=== PATIENT | male | born 1990 | race Caucasian/White ===

== ENCOUNTER 2017-09-30 18:49 | Inpatient (IN) | payer SELFPAY ==
[~2017-09-30] VITALS: Ht 190.5 cm; Wt 108.4 kg
[2017-09-30] VITALS (12 sets, daily range): BP systolic 113–138; BP diastolic 66–91
[2017-09-30] MEDS ORDERED: Ketorolac 30mg Inj IV ONE (19:00)
[2017-09-30] MEDS ORDERED: Morphine Sulfate 4mg/ml Inj IVP ONE ×2 (19:00→22:30)
[2017-09-30 19:40] LABS: MEAN CORPUSCULAR VOLUME 92 FL (80-99); PLATELET COUNT 211 K/UL (150-450); RED BLOOD COUNT 5.42 M/UL (4.70-6.10); RED CELL DISTRIBUTION WIDTH 10.6 % (11.6-14.8); WHITE BLOOD COUNT 11.2 K/UL (4.8-10.8)
[2017-09-30] MEDS ORDERED: Sodium Chloride 500ML 500 ML IV ONE ×2 (20:00→22:00)
[2017-09-30 20:08] LABS: HEMOGLOBIN 18.1 G/DL (14.2-18.0); LYMPHOCYTES % (AUTO) 10.4 % (20.0-45.0); MONOCYTES % (AUTO) 3.7 % (1.0-10.0)
[2017-09-30 20:09] LABS: BASOPHILS % (AUTO) 0.6 % (0.0-2.0); EOSINOPHILS % (AUTO) 0.3 % (0.0-3.0)
[2017-09-30 20:12] LABS: ANION GAP 9 mmol/L (5-15); BLOOD UREA NITROGEN 20 mg/dL (7-18); CALCIUM 9.6 MG/DL (8.5-10.1); CARBON DIOXIDE 27 MMOL/L (21-32); CHLORIDE 105 MMOL/L (98-107); CREATININE 1.9 MG/DL (0.55-1.30); POTASSIUM 4.3 MMOL/L (3.5-5.1); SODIUM 141 MMOL/L (136-145)
[2017-09-30 20:17] LABS: ALANINE AMINOTRANSFERASE 44 U/L (12-78); ALBUMIN 4.3 G/DL (3.4-5.0); ALBUMIN/GLOBULIN RATIO 1.2 (1.0-2.7); ALKALINE PHOSPHATASE 65 U/L (46-116); ASPARTATE AMINO TRANSFERASE 22 U/L (15-37); BILIRUBIN,TOTAL 0.5 MG/DL (0.2-1.0)
--- NOTE | 2017-09-30 20:56 | Emergency Room Report ---
History of Present Illness General Chief Complaint: Lower Extremity Injury Source: Patient Present Illness HPI 27-year-old male presents ED for evaluation. Patient brought in by EMS with deformity to right leg. Patient was playing basketball and was hit during layup and slammed into a wall. Pain is 10 out of 10, throbbing, nonradiating. Denies any other injuries. Was given morphine 2 by EMS. No other aggravating relieving factors. Denies any other associated symptoms Allergies: Coded Allergies: FENTANYL (Verified Allergy, Unknown, 09/30/17) Patient History Past Medical History: none Past Surgical History: none Pertinent Family History: none Social History: Denies: smoking, alcohol use, drug use Immunizations: UTD Reviewed Nursing Documentation: PMH: Agreed; PSxH: Agreed Nursing Documentation-PMH Past Medical History: No Stated History Review of Systems All Other Systems: negative except mentioned in HPI Physical Exam Vital Signs Date Time Temp Pulse Resp B/P (MAP) Pulse Ox O2 Delivery O2 Flow Rate FiO2 09/30/17 18:47 97.8 80 20 135/88 100 Room Air 97.9 Sp02 EP Interpretation: reviewed, normal General Appearance: no apparent distress, alert, GCS 15, non-toxic Head: normocephalic, atraumatic Eyes: bilateral eye normal inspection, bilateral eye PERRL ENT: hearing grossly normal, normal pharynx, no angioedema, normal voice Neck: full range of motion, supple/symm/no masses Respiratory: chest non-tender, lungs clear, normal breath sounds, speaking full sentences Cardiovascular #1: regular rate, rhythm, no edema Cardiovascular #2: 2+ carotid (R), 2+ carotid (L), 2+ radial (R), 2+ radial (L) , 2+ dorsalis pedis (R), 2+ dorsalis pedis (L) Gastrointestinal: normal bowel sounds, non tender, soft, non-distended, no guarding, no rebound Rectal: deferred Genitourinary: normal inspection, no CVA tenderness Musculoskeletal: back normal, gait/station normal, normal range of motion, tender - RLE deformity. pulses intact Neurologic: alert, oriented x3, responsive, motor strength/tone normal, sensory intact, speech normal Psychiatric: judgement/insight normal, memory normal, mood/affect normal, no suicidal/homicidal ideation Reflexes: 3+ bicep (R), 3+ bicep (L), 3+ tricep (R), 3+ tricep (L), 3+ knee (R) , 3+ knee (L) Skin: normal color, no rash, warm/dry, well hydrated Lymphatic: no adenopathy Procedures Joint Reduction Joint Reduction : Consent: Written Joint Reduction Site: other - RLE Procedural Sedation: Yes Reduction Attempts: One Pre-Procedure NV Exam: Yes Post-Procedure NV Exam: Yes Post Joint Reduction Film: joint not reduced Patient Tolerated: Well Complications: None Procedural Sedation Consent: Written Pre-Sedation Assessment: Eval. Immed. Prior to Sed, Pre-proc Edu. done, Plan for Sedation Discuss Airway Assessment (Malampati): I Heart: normal Lungs: normal Abdomen: normal Extremities: normal Procedures/Plans: Closed Reduction Plan for Moderate Sedation: Propofol ASA Score: I Procedure Narrative patient given total 400mg propofol Start Time: 22:05 End Time: 22:40 Communication: No Apparent Limitation Mental Status: Awake Respiration: Unlabored Skin Condition: WNL Abdomen: WNL Nausea: NO Vomiting: NO Medical Decision Making Diagnostic Impression: Primary Impression: Tibia/fibula fracture Qualified Codes: S82.201A - Unspecified fracture of shaft of right tibia, initial encounter for closed fracture; S82.401A - Unspecified fracture of shaft of right fibula, initial encounter for closed fracture ER Course Hospital Course 27-year-old male presents ED with deformity to right lower extremity status post fall Differential diagnoses include: fracture, dislocation, contusion Clinical course Patient placed on stretcher. After initial history and physical I ordered labs , pain medication and x-rays of RLE X-ray show comminuted fractures of tibia and fibula with angulation. Not open however there is tenting of the skin Using procedural sedation we attempted to reduce the fracture however once aligned fracture does pop out again Splinting with posterior splint and stirrup Overall improved alignment however unstable and patient cannot bear weight. Case discussed with Dr. Ho Guajardo who agreed to consult on this case. Case discussed with Dr. Ritchie who agreed to accept the patient to his service for further care and support i. I feel this is a highly complex case requiring extensive working including EKG/Rhythm strip, Xray/CT/US, Blood/urine lab work, repeat exams while in ED, and administration of strong opiates/narcotics for pain control, admission to hospital or close patient follow up. Diagnosis - tiba/fibula fx Admitted to floor in serious condition Labs Test 09/30/17 19:20 White Blood Count 11.2 K/UL (4.8-10.8) Red Blood Count 5.42 M/UL (4.70-6.10) Hemoglobin 18.1 G/DL (14.2-18.0) Hematocrit 50.0 % (42.0-52.0) Mean Corpuscular Volume 92 FL (80-99) Mean Corpuscular Hemoglobin 33.4 PG (27.0-31.0) Mean Corpuscular Hemoglobin Concent 36.3 G/DL (32.0-36.0) Red Cell Distribution Width 10.6 % (11.6-14.8) Platelet Count 211 K/UL (150-450) Mean Platelet Volume 8.3 FL (6.5-10.1) Neutrophils (%) (Auto) 85.0 % (45.0-75.0) Lymphocytes (%) (Auto) 10.4 % (20.0-45.0) Monocytes (%) (Auto) 3.7 % (1.0-10.0) Eosinophils (%) (Auto) 0.3 % (0.0-3.0) Basophils (%) (Auto) 0.6 % (0.0-2.0) Prothrombin Time 10.5 SEC (9.30-11.50) Prothromb Time International Ratio 1.0 (0.9-1.1) Activated Partial Thromboplast Time 22 SEC (23-33) Sodium Level 141 MMOL/L (136-145) Potassium Level 4.3 MMOL/L (3.5-5.1) Chloride Level 105 MMOL/L (98-107) Carbon Dioxide Level 27 MMOL/L (21-32) Anion Gap 9 mmol/L (5-15) Blood Urea Nitrogen 20 mg/dL (7-18) Creatinine 1.9 MG/DL (0.55-1.30) Estimat Glomerular Filtration Rate 42.7 mL/min (>60) Glucose Level 100 MG/DL (74-106) Calcium Level 9.6 MG/DL (8.5-10.1) Total Bilirubin 0.5 MG/DL (0.2-1.0) Aspartate Amino Transf (AST/SGOT) 22 U/L (15-37) Alanine Aminotransferase (ALT/SGPT) 44 U/L (12-78) Alkaline Phosphatase 65 U/L (46-116) Total Protein 7.9 G/DL (6.4-8.2) Albumin 4.3 G/DL (3.4-5.0) Globulin 3.6 g/dL Albumin/Globulin Ratio 1.2 (1.0-2.7) Other X-Ray Diagnostic Results Other X-Ray Diagnostic Results #1: X-Ray ordered: R tibfib # of Views/Limited Vs Complete: 2 View Indication: Pain EP Interpretation: Yes Interpretation: no dislocation, other - tibia and fibula fx. comminuted. displaced with angulation Impression: Other - fx Electronically Signed by: Electronically signed by Phu Car MD Other X-Ray Diagnostic Results #2: X-Ray ordered: R ankle # of Views/Limited Vs Complete: 3 View Indication: Pain EP Interpretation: Yes Interpretation: no dislocation, other - tibia/fibula comminuted fx with angulation Impression: Other - fx Electronically Signed by: Electronically signed by Phu Car MD Last Vital Signs Date Time Temp Pulse Resp B/P (MAP) Pulse Ox O2 Delivery O2 Flow Rate FiO2 09/30/17 20:32 97.5 62 16 125/66 100 Room Air 97.5 Status: improved Disposition: ADMITTED INPATIENT Condition: Serious Phu Car MD September 30, 2017 20:56
[2017-09-30] MEDS ORDERED: Propofol 200mg/20ml IV ONE ×3 (22:03→23:30)
[2017-09-30] MEDS ORDERED: Morphine Sulfate 4mg/ml Inj ONE (22:28)
[2017-09-30] MEDS ORDERED: NKM (23:15)
[2017-10-01] VITALS (10 sets, daily range): BP systolic 107–161; BP diastolic 7–83
[2017-10-01] MEDS ORDERED: Morphine Sulfate 10mg/ml Inj IVP PRN (00:30)
[2017-10-01] MEDS ORDERED: Morphine Sulfate 4mg/ml Inj IVP PRN ×4 (00:30→07:00)
[2017-10-01] MEDS ORDERED: Morphine Sulfate 4mg/ml Inj IV PRN (02:00)
[2017-10-01] MEDS: D5 1/2NS 1,000 ML IV SCH ×2 (03:45→16:40)
[2017-10-01] MEDS ORDERED: Mylanta II UD 30ml ORAL PRN (07:00)
[2017-10-01] MEDS ORDERED: LORazepam Inj 2mg/ml 1ml IV PRN (07:00)
[2017-10-01] MEDS: Heparin 5000 units/ml inj SUBQ SCH ×2 (08:14→21:00)
[2017-10-01] MEDS: Morphine Sulfate 4mg/ml Inj IVP PRN ×2 (08:30→15:14)
--- NOTE | 2017-10-01 09:04 | Consultation ---
History of Present Illness General Date patient seen: October 01, 2017 Chief Complaint: Lower Extremity Injury Present Illness Allergies: Coded Allergies: FENTANYL (Verified Allergy, Unknown, 09/30/17) Medication History Scheduled No Known Medications* (NKM - No Known Medications*), 0 ., (Reported) Patient History Healthcare decision maker Resuscitation status Full Code Advanced Directive on File Physical Exam Last 24 Hour Vital Signs Date Time Temp Pulse Resp B/P (MAP) Pulse Ox O2 Delivery O2 Flow Rate FiO2 10/01/17 08:54 97.3 84 20 107/61 98 Room Air 97.3 10/01/17 04:00 97.3 68 20 132/79 98 97.3 10/01/17 00:40 97.5 77 18 130/80 98 Room Air 97.5 10/01/17 00:30 97.5 77 18 130/80 98 Room Air 97.5 10/01/17 00:25 97.2 09/30/17 23:40 97.2 67 13 99 Nasal Cannula 4.0 97.2 65 97 82 95 74 96 82 09/30/17 23:25 74 14 126/82 95 Room Air 09/30/17 23:22 18 09/30/17 23:22 97.5 09/30/17 23:10 82 17 137/72 97 Room Air 09/30/17 22:55 67 13 114/73 99 Nasal Cannula 4.0 09/30/17 22:53 97.5 09/30/17 22:35 97.4 72 22 130/76 99 Nasal Cannula 4.0 97.4 09/30/17 22:30 97.4 71 15 129/69 99 Nasal Cannula 4.0 97.4 09/30/17 22:25 97.4 70 17 127/71 99 Nasal Cannula 4.0 97.4 09/30/17 22:20 97.4 73 12 129/69 100 Nasal Cannula 4.0 97.4 09/30/17 22:15 97.3 78 18 138/75 100 Nasal Cannula 4.0 97.3 09/30/17 22:10 97.3 88 24 127/69 100 Nasal Cannula 4.0 97.3 09/30/17 22:00 97.3 65 13 113/91 100 Nasal Cannula 4.0 97.3 09/30/17 20:32 97.5 62 16 125/66 100 Room Air 97.5 09/30/17 19:44 97.8 09/30/17 19:44 97.8 09/30/17 19:14 97.8 09/30/17 19:14 97.8 09/30/17 18:47 97.8 80 20 135/88 100 Room Air 97.9 Intake and Output 09/30/17 10/01/17 18:59 06:59 Intake Total 1425 ml Output Total 300 ml Balance 1125 ml Intake Oral 200 ml IV Total 1225 ml Output Urine Total 300 ml Laboratory Tests Test 09/30/17 19:20 White Blood Count 11.2 K/UL (4.8-10.8) H Red Blood Count 5.42 M/UL (4.70-6.10) Hemoglobin 18.1 G/DL (14.2-18.0) *H Hematocrit 50.0 % (42.0-52.0) Mean Corpuscular Volume 92 FL (80-99) Mean Corpuscular Hemoglobin 33.4 PG (27.0-31.0) H Mean Corpuscular Hemoglobin Concent 36.3 G/DL (32.0-36.0) H Red Cell Distribution Width 10.6 % (11.6-14.8) L Platelet Count 211 K/UL (150-450) Mean Platelet Volume 8.3 FL (6.5-10.1) Neutrophils (%) (Auto) 85.0 % (45.0-75.0) H Lymphocytes (%) (Auto) 10.4 % (20.0-45.0) L Monocytes (%) (Auto) 3.7 % (1.0-10.0) Eosinophils (%) (Auto) 0.3 % (0.0-3.0) Basophils (%) (Auto) 0.6 % (0.0-2.0) Prothrombin Time 10.5 SEC (9.30-11.50) Prothromb Time International Ratio 1.0 (0.9-1.1) Activated Partial Thromboplast Time 22 SEC (23-33) L Sodium Level 141 MMOL/L (136-145) Potassium Level 4.3 MMOL/L (3.5-5.1) Chloride Level 105 MMOL/L (98-107) Carbon Dioxide Level 27 MMOL/L (21-32) Anion Gap 9 mmol/L (5-15) Blood Urea Nitrogen 20 mg/dL (7-18) H Creatinine 1.9 MG/DL (0.55-1.30) H Estimat Glomerular Filtration Rate 42.7 mL/min (>60) Glucose Level 100 MG/DL (74-106) Calcium Level 9.6 MG/DL (8.5-10.1) Total Bilirubin 0.5 MG/DL (0.2-1.0) Aspartate Amino Transf (AST/SGOT) 22 U/L (15-37) Alanine Aminotransferase (ALT/SGPT) 44 U/L (12-78) Alkaline Phosphatase 65 U/L (46-116) Total Protein 7.9 G/DL (6.4-8.2) Albumin 4.3 G/DL (3.4-5.0) Globulin 3.6 g/dL Albumin/Globulin Ratio 1.2 (1.0-2.7) Height (Feet): 6 Height (Inches): 3.00 Weight (Pounds): 240 Medications Current Medications Medications (Trade) Dose Ordered Sig/Jeremie Route PRN Reason Start Time Stop Time Status Last Admin Dose Admin Acetaminophen (Tylenol) 650 mg Q4H PRN ORAL T>100.5 10/01/17 07:00 10/31/17 06:59 Al Hydroxide/Mg Hydroxide (Mylanta II) 30 ml Q6H PRN ORAL dyspepsia 10/01/17 07:00 10/31/17 06:59 Dextrose (Dextrose 50%) 25 ml PRN IV Hypoglycemia 10/01/17 07:15 10/31/17 07:14 Dextrose (Dextrose 50%) 50 ml PRN IV hypoglycemia 10/01/17 07:15 10/31/17 07:14 Dextrose/Sodium Chloride 1,000 ml @ 75 mls/hr [id number] IV 10/01/17 03:00 10/31/17 02:59 10/01/17 03:45 Heparin Sodium (Porcine) (Heparin 5000 units/ml) 5,000 units EVERY 12 HOURS SUBQ 10/01/17 09:00 10/31/17 08:59 Lorazepam (Ativan 2mg/ml 1ml) 0.5 mg Q4H PRN IV For Anxiety 10/01/17 07:00 10/08/17 06:59 Morphine Sulfate (Morphine Sulfate) 2 mg Q4H PRN IVP Mild Pain (Pain Scale 1-3) 10/01/17 02:15 10/08/17 02:14 Morphine Sulfate (Morphine Sulfate) 4 mg Q4H PRN IVP Moderate Pain (Pain Scale 4-6) 10/01/17 02:15 10/08/17 02:14 10/01/17 08:30 Morphine Sulfate (Morphine Sulfate) 6 mg Q4H PRN IVP Severe Pain (Pain Scale 7-10) 10/01/17 06:00 10/08/17 01:59 Ondansetron HCl (Zofran) 4 mg Q6H PRN IVP Nausea & Vomiting 10/01/17 02:00 10/31/17 01:59 10/01/17 08:41 Polyethylene Glycol (Miralax) 17 gm HSPRN PRN ORAL Constipation 10/01/17 21:00 10/31/17 20:59 Zolpidem Tartrate (Ambien) 5 mg HSPRN PRN ORAL Insomnia 10/01/17 21:00 10/08/17 20:59 Assessment/Plan Assessment/Plan (1) Right LE pain (2) Tibia/fibula fracture Seen dictated VELMA DEVRIES October 01, 2017 09:04
[2017-10-01] MEDS ORDERED: DiphenhydrAMINE 50mg/ml Inj ONE (13:12)
--- NOTE | 2017-10-01 13:23 | Diagnostic Imaging Report ---
Indication: Pain status post injury Technique: XRAY Leg Lower Tib Fib 2v R Comparison: None Findings: Acute, comminuted and significantly displaced and related fractures of the distal fibular. The fibular shaft is fractured in 2 areas. Fracture of the distal tibial shaft is noted with significant displacement and angulation and mild comminution. There is overlying soft tissue swelling. The partially imaged knee and ankle joints are grossly preserved. No radiopaque foreign body is seen. Impression: Acute distal tibial and fibular fractures as above.
--- NOTE | 2017-10-01 13:25 | Diagnostic Imaging Report ---
Indication: Pain status post injury Technique: XRAY Ankle Compl Min 3v R Comparison: None Findings: 2, displaced and angulated and mildly comminuted fractures of the tibial and fibular shafts. The ankle mortise is intact on these nonstress views. There is a small os perineum. No radiopaque foreign body is seen. Impression: Acute fractures of the distal fibular and tibial shafts. Ankle mortise intact. No definite/displaced ankle fracture is identified on these limited portable views.
--- NOTE | 2017-10-01 13:28 | Diagnostic Imaging Report ---
Indication: Fracture Technique: XRAY Ankle 2v R Comparison: Earlier the same day. Findings: There is slight improved alignment of the tibial and fibular shaft fractures status post reduction. Significant displacement persists. No definite new fracture identified. IMPRESSION: Significant persistent displacement of acute tibial/fibular fractures status post external reduction and splinting.
--- NOTE | 2017-10-01 15:44 | History & Physical ---
History and Physical History & Physicial job # [id number] Fabricio Ritchie MD October 01, 2017 15:44
--- NOTE | 2017-10-01 16:45 | Consultation ---
DATE OF CONSULTATION: 10/01/2017 PAIN MANAGEMENT CONSULTATION CONSULTING PHYSICIAN: Rachel Rucker M.D. REFERRING PHYSICIAN: David Parker M.D. PHYSICIAN MENTAL HEALTH CONSULTANT: Paulino Chowdhury CHIEF COMPLAINT: Right lower extremity pain. HISTORY OF PRESENT ILLNESS: This is a 27-year-old male, who is being seen on the Med/Surg floor of [facility] for initial comprehensive pain management consultation. The patient is reporting that he has been having right lower extremity pain and deformity. He reports that he had been playing basketball, was hit during a basket ball game into the wall. Pain has been a 10/10, reduced to 5/10 at this time, throbbing sharp pain with movement. A cast has been applied. Waiting to be seen by orthopedic surgeon for further evaluation, possible surgery. At this time, he is on morphine 2, 4 and 6 mg for mild, moderate, and severe pain. The patient is on taking the morphine 4 mg IV, which has reduced the pain to the current level at this time. He has no new complaints. PAST MEDICAL HISTORY: Denies. PAST SURGICAL HISTORY: Abdominal surgery for bladder issues. SOCIAL HISTORY: He is a drinker of alcohol. Denies IV drug abuse and smoking tobacco. ALLERGIES: Fentanyl. MEDICATIONS: Does not take any medication as an outpatient. REVIEW OF SYSTEMS: Denies rash, fever, chills, sweating, dizziness, drowsiness, or change in weight. No shortness of breath or chest pain. No nausea, vomiting, or blood in stool or urine. No bowel or bladder incontinence. No dysuria. He is complaining of right lower extremity pain. PHYSICAL EXAMINATION: GENERAL: Alert, awake, and oriented x3. VITAL SIGNS: Blood pressure 147/61, heart rate is 84, oxygen saturation 98%, respiratory rate 20, and temperature is 97.3 degrees Fahrenheit. HEENT: PERRLA. NECK: Range of motion is full in all directions. No tenderness to paracervical muscles. No adenopathy. LUNGS: Clear. HEART: Regular. ABDOMEN: Benign. BACK: Range of motion is full on flexion and extension. EXTREMITIES: Upper extremity range of motion is full in all directions. Motor is intact. No cyanosis. No clubbing. No edema. Sensory is intact. Reflexes are unobtainable. No adenopathy. Lower extremity range of motion is decreased with cast noted on the right lower extremity. Tenderness to palpation and sensory is intact. Reflexes are unobtainable. No adenopathy. ASSESSMENT AND PLAN: This is a 27-year-old male with right lower extremity pain due to tibia-fibula fracture. The patient will be continued on morphine as needed for pain. Waiting for evaluation by orthopedic surgeon. The patient was discussed with Dr. Rucker and Dr. Rucker concurred. We will follow the patient. Thank you very much for the courtesy of this consultation. Rachel Rucker M.D. PHYLLIS Chowdhury DR: LEYDA JOB#: [id number] CC: RUMA
[2017-10-01] MEDS ORDERED: EPINEPHrine 1mg/1ml Amp ONE (19:02)
[2017-10-01] MEDS ORDERED: Bupivacaine 0.25% Inj 30ml INJ ONE (19:03)
[2017-10-01] MEDS ORDERED: Bacitracin 50000 Units Vial ONE (19:03)
[2017-10-01] MEDS ORDERED: Lidocaine 1% 10mg/ml/Epi 0.005mg/ml 30ml vial INJ ONE (19:03)
[2017-10-01] MEDS ORDERED: NeoSporin Gu Irrig 1ml Amp IRRIG ONE (19:03)
[2017-10-01] MEDS ORDERED: NS Irrig 1000ml ONE (19:30)
[2017-10-01] MEDS ORDERED: Sterile Water Irrig 1000ml IRRIG ONE (19:30)
[2017-10-01] MEDS ORDERED: LR 1000ml ONE (19:30)
[2017-10-01] MEDS ORDERED: Morphine Sulfate 10mg/ml Inj ONE (19:44)
[2017-10-01] MEDS ORDERED: D5 1/2NS 1,000 ML IV SCH (19:45)
--- NOTE | 2017-10-01 19:46 | Pre-Procedure Note/Attestation ---
Pre-Procedure Note/Attestation Complete Prior to Procedure Planned Procedure: right Procedure Narrative: tibia orif Indications for Procedure Pre-Operative Diagnosis: right tibia and fibula fracture Attestation I attest that I discussed the nature of the procedure; its benefits; risks and complications; and alternatives (and the risks and benefits of such alternatives ), prior to the procedure, with the patient (or the patient's legal senior account representative). I attest that, if there was a reasonable possibility of needing a blood transfusion, the patient (or the patient's legal senior account representative) was given the [facility] standardized written summary, pursuant to the Judah Felicity Blood Safety Act ([place] Health and Safety Code # 1645, as amended). I attest that I re-evaluated the patient just prior to the surgery and that there has been no change in the patient's H&P, except as documented below: KAM SOTELO October 01, 2017 19:46
--- NOTE | 2017-10-01 19:46 | Operative Note - PDOC ---
Operative Note Operative Note Pre-op Diagnosis: right tibia and fibula fracture Procedure: see op report Post-op Diagnosis: same as pre-op plus Operative Findings: consistent w/pre-op dx studies Anesthesia: MAC Specimen: none Complications: none Condition: stable Estimated Blood Loss: none Implant(s) used?: Yes KAM SOTELO October 01, 2017 19:46
[2017-10-01] MEDS ORDERED: Metoclopramide 10mg/2ml Inj ONE (20:04)
[2017-10-01] MEDS ORDERED: Glycopyrrolate 0.2mg/ml 1ml Vial ONE ×2 (20:04→21:13)
[2017-10-01] MEDS ORDERED: Propofol 200mg/20ml IV ONE (20:04)
[2017-10-01] MEDS ORDERED: Dexamethasone 4mg/ml vial ONE (20:04)
[2017-10-01] MEDS ORDERED: Ketorolac 30mg Inj ONE (20:04)
[2017-10-01] MEDS ORDERED: fentaNYL 100 mcg/2 mL IV ONE (20:04)
[2017-10-01] MEDS ORDERED: LR 1000ml 1,000 ML IVLG SCH (20:14)
[2017-10-01] MEDS ORDERED: Metoclopramide 10mg/2ml Inj IVP PRN (20:15)
[2017-10-01] MEDS ORDERED: Midazolam 2mg/2ml Inj IVP PRN (20:15)
[2017-10-01] MEDS ORDERED: Morphine Sulfate 4mg/ml Inj IM PRN (20:15)
[2017-10-01] MEDS ORDERED: DiphenhydrAMINE 50mg/ml Inj IVP PRN (20:15)
--- NOTE | 2017-10-01 20:21 | Anethesia Preoperative Eval ---
Anesthesia Pre-op PMH/ROS General Date of Evaluation: October 01, 2017 Time of Evaluation: 19:30 Anesthesiologist: Yvette ASA Score: ASA 2 Mallampati Score Class I : Soft palate, uvula, fauces, pillars visible Class II: Soft palate, uvula, fauces visible Class III: Soft palate, base of uvula visible Class IV: Only hard plate visible Mallampati Classification: Class II Surgeon: Bennett Diagnosis: Right tibfib fracturer Surgical Procedure: )RIF right tibia fibula Anesthesia History: none Family History: no anesthesia problems Allergies: Coded Allergies: FENTANYL (Verified Allergy, Unknown, 09/30/17) Medications: see eMAR Anesthesia Pre-op Phys. Exam Physician Exam Last Vital Signs Date Time Temp Pulse Resp B/P (MAP) Pulse Ox O2 Delivery O2 Flow Rate FiO2 10/01/17 16:07 99.3 74 22 127/77 99 Room Air 99.3 09/30/17 23:40 4.0 Constitutional: NAD Neurologic: CN 2-12 intact Cardiovascular: RRR Respiratory: CTA Gastrointestinal: S/NT/ND Airway Exam Mallampati Score: Class II MO: full ROM: full Teeth: intact Anesthesia Pre-op A/P Risk Assessment & Plan Plan: GA Status Change Before Surgery: No Pre-Antibiotics Drug: Ancef Given Within 1 Hr of Incision: Yes Roman Crawford M.D. October 01, 2017 20:21
--- NOTE | 2017-10-01 20:23 | Immediate Post-Op Evaluation ---
Immediate Post-Op Evalulation Immediate Post-Op Evalulation Procedure: ORIF Right tib fib Date of Evaluation: October 01, 2017 Time of Evaluation: 22:00 IV Fluids: 1000 Blood Products: 0 Estimated Blood Loss: 20 Urinary Output: 0 Blood Pressure Systolic: 121 Blood Pressure Diastolic: 69 Pulse Rate: 80 Respiratory Rate: 19 O2 Sat by Pulse Oximetry: 99 Temperature (Fahrenheit): 98 Pain Score (1-10): 0 Nausea: No Vomiting: No Patient Status: awake, reacts, patent, extubated Hydration Status: adequate Drug: ancef Given Within 1 Hr of Incision: Yes Time Given: 20:00 Roman Crawford M.D. October 01, 2017 20:23
--- NOTE | 2017-10-01 20:24 | 48 Hour Post Anesthesia Eval ---
Post Anesthesia Evaluation Procedure: ORIF Right tib fib Date of Evaluation: October 03, 2017 Time of Evaluation: 20:23 Blood Pressure Systolic: 130 0: 72 Pulse Rate: 98 Respiratory Rate: 16 Temperature (Fahrenheit): 98 O2 Sat by Pulse Oximetry: 99 Airway: patent Nausea: No Vomiting: No Pain Intensity: 0 Hydration Status: adequate Mental Status/LOC: patient returned to baseline Post-Anesthesia Complications: none Follow-up care needed: ready to discharge Roman Crawford M.D. October 01, 2017 20:24
[2017-10-01] MEDS ORDERED: Meperidine 50mg/ml Inj(FOR RIGORS ONLY) ONE (20:26)
[2017-10-01] MEDS ORDERED: Acetaminophen (Non formulary) 100 ML IV ONE (20:30)
[2017-10-01] MEDS ORDERED: Miralax 17gm pkt ORAL PRN (21:00)
[2017-10-01] MEDS ORDERED: Zolpidem 5mg tab ORAL PRN (21:00)
[2017-10-01] MEDS ORDERED: Neostigmine 1mg/ml 10ml Inj ONE (21:02)
[2017-10-01] MEDS ORDERED: Ropivacaine 5mg/ml Vial 30ml INJ ONE (21:20)
[2017-10-01] MEDS ORDERED: Zemuron 50mg/5ml Inj IV ONE (21:58)
[2017-10-01] MEDS ORDERED: Vancomycin 1gm inj IVPB ONE (22:19)
[2017-10-02] VITALS: BP 151/89
[2017-10-02] MEDS: Morphine Sulfate 4mg/ml Inj IVP PRN ×2 (00:40→10:05)
--- NOTE | 2017-10-02 00:45 | History and Physical Report ---
DATE OF ADMISSION: 09/30/2017 CHIEF COMPLAINT: Right foot injury. HISTORY OF PRESENT ILLNESS: The patient is a 27-year-old gentleman. He denies any past medical history. Past surgical history, he had bladder surgery at age of 5 for unknown reason who presented to the emergency room after sustained injury while playing basketball. The patient was trying to doing his slam jumping up to throw the ball. He was thrown to the side and subsequently felt to have sharp pain to the right lower extremity, 10/10 in intensity, throbbing, nonradiating and subsequently the patient was brought into the emergency room. After initial evaluation in the emergency, the patient was noted to have tibia-fibula fracture and subsequently the patient was admitted to the hospital for surgical intervention. Dr. Guajardo was consulted from Orthopedics and the patient was admitted to the hospital for further evaluation and possible surgical intervention today. PAST MEDICAL HISTORY AND PAST SURGICAL HISTORY: History of bladder surgery at age of 5. MEDICATIONS: At home, none. ALLERGIES: To fentanyl with unknown allergy reaction. SOCIAL HISTORY: The patient denies any smoking. Socially drinking. No substance. FAMILY HISTORY: Noncontributory. REVIEW OF SYSTEMS: Mostly as above. Denies any dysuria, frequency, hematuria, or hematochezia. Denies any hemoptysis or hematochezia. Denies any suicidal or homicidal ideation. PHYSICAL EXAMINATION: GENERAL: The patient is awake, responsive, in no acute distress. VITAL SIGNS: On admission from the ER, temperature 97.8 degrees, pulse of 80, respirations 20, and blood pressure 135/88. HEAD AND NECK: Pupils are reactive to light. Extraocular movements are intact. Neck was supple. No JVD. LUNGS: Good air entry. No wheezing or rales HEART: S1 and S2. Regular rhythm. No gallops. ABDOMEN: Soft, nondistended, and nontender. No rebound tenderness. No fluid shift. EXTREMITIES: No cyanosis, clubbing, or edema. Right lower extremity has a splint. NEUROLOGIC: Cranial nerves II through XII grossly intact. Motor strength is 5/5 in all extremities. Gait was not assessed due to patient's status at this time. LABORATORY AND DIAGNOSTIC DATA: On admission significant for WBC of 11, hemoglobin 18, hematocrit 50, platelet 211. Sodium 141, potassium 4.2, chloride 105, bicarbonate 27, BUN 20, creatinine 1.9 and glucose is 100. AST of 23 and ALT of 44. PT of 10, INR 1.0 and PTT of 22. The patient has tibia-fibula x-ray showed acute distal tibial and fibular fracture. Ankle x-ray, acute fracture of the tibia-fibula shaft, ankle intact. No definitive displaced ankle fracture is identified and this is limited portable view. ASSESSMENT: 1. Status post fall injury to the right lower extremity with acute tibia-fibula right lower extremity fracture. 2. Acute kidney injury. 3. Dehydration. PLAN: Admit the patient to Medical/Surgical. We will follow up laboratory. IV hydration. NPO after midnight for surgical intervention by Dr. Guajardo. We will monitor laboratory closely. If the patient's status improved, consider discharge home tomorrow to be followed up with Dr. Guajardo as outpatient. Fabricio Ritchie M.D. DR: CHRIS JOB#: [id number] CC:
[2017-10-02 01:29] VITALS: BP 116/80
[2017-10-02 04:00] VITALS: BP 117/80
[2017-10-02] MEDS: ceFAZolin sod 2 GM in D5W 55 ML IV SCH ×2 (04:08→12:00)
--- NOTE | 2017-10-02 05:15 | Operative Note - Dictated ---
DATE OF OPERATION: 10/01/2017 PREOPERATIVE DIAGNOSIS: Right tibia and fibula fracture. POSTOPERATIVE DIAGNOSIS: Right tibia and fibula fracture. PROCEDURE: Open reduction and internal fixation of right tibia fracture. SURGEON: Ho Guajardo M.D. ANESTHESIA: General with femoral adductor block. INDICATION FOR PROCEDURE: The patient is a 27-year-old gentleman, who sustained injury to his right leg while playing basketball. He was diagnosed with tib-fib fracture indicative of operative fixation. Risks, limitations, expectations, and complications of the procedure were discussed in detail. All questions addressed. DESCRIPTION OF PROCEDURE: After informed consent was obtained, the patient was brought into the operating room and was placed supine under general anesthesia. Ancef was administered. Tourniquet was applied to the right proximal thigh. Right leg was prepped and draped in a sterile manner. Longitudinal incision at the distal third of the tibia was performed centered around the apex of the fracture. At this point, reduction of the fracture was performed. There was a butterfly fragment that was behind the posterior aspect. It was very difficult and challenging to get this fragment of bone mobilized anteriorly, however, after multiple attempts, we were able to mobilize the anterior distal soft tissue that was still attached and maintained to this butterfly fragment to ensure the vascularity of the fragments. At this point, a one-third tubular plate was then selected for provisional fixation reduction. Once this was done, attention turned towards intramedullary nailing procedure. A standard medial parapatellar arthrotomy was performed. The proximal aspect of the tibia was well visualized and guidewire was then placed into the proximal tibia. Once AP, lateral fluoroscopy images were obtained, the proximal tibia was opened up with opening reamer. A beaded tip guidewire was then placed and sequential reaming up to 12.5 was performed. A 10 x mm nail was selected and set down. Of note, the reaming and the nailing was difficult to bypass the provisional fixation. Therefore, the plate was held with clamps and the screws were removed, which did at least provide provisional reduction of the fracture allowing the reamers of the nail to pass through. Once that was done, the nail was then set down. At this point, two distal screws were then placed down. Once the distal fixation was performed, a slap hammer was placed in the proximal tibia and the fracture site was then compressed using the slap hammer. Once adequate compression along the fracture site was performed, two proximal screws were placed both in static and dynamic. At this point, the wound was copiously irrigated. Arthrotomy site was closed with #1 Vicryl suture. Vancomycin powder was placed into the open wounds. Subcutaneous was approximated with 2-0 Vicryl suture, 3-0 Monocryl sutures, and Dermabond dressing was applied. Distally some of the reamings were removed and was placed along the area of the comminution to help potentially heal the bone. The skin was similarly approximated with #1 Vicryl suture, 2-0 Vicryl suture, and 3-0 Monocryl sutures. A posterior splint was applied. The patient was awoken and taken to recovery room with stable vital signs. ESTIMATED BLOOD LOSS: 200 mL. COMPLICATIONS: None. SPECIMENS: None. IMPLANTS: A 10 x mm tibial nail and two distal and two proximal locking screws, a 5-hole one-third tubular plate was screws for provisional fixation. Ho Guajardo M.D. DR: PATTIE JOB#: [id number] CC:
[2017-10-02] MEDS: D5 1/2NS 1,000 ML IV SCH ×2 (05:40→06:49)
[2017-10-02 08:00] VITALS: BP 113/76
[2017-10-02] MEDS: Heparin 5000 units/ml inj SUBQ SCH ×2 (09:00→09:12)
[2017-10-02] MEDS: Docusate 100mg cap ORAL SCH ×2 (09:00→13:00)
[2017-10-02] MEDS ORDERED: oxyCONTIN 20mg tab ORAL SCH (09:00)
[2017-10-02] MEDS ORDERED: celeBREX 200mg Cap **SURGERY PATIENTS ONLY ORAL SCH (09:00)
[2017-10-02] MEDS ORDERED: Docusate Sod/Senna tab ORAL SCH (09:00)
[2017-10-02 09:05] LABS: HEMOGLOBIN 14.5 G/DL (14.2-18.0); MEAN CORPUSCULAR VOLUME 92 FL (80-99); PLATELET COUNT 197 K/UL (150-450); RED BLOOD COUNT 4.33 M/UL (4.70-6.10); RED CELL DISTRIBUTION WIDTH 10.8 % (11.6-14.8); WHITE BLOOD COUNT 10.6 K/UL (4.8-10.8)
[2017-10-02 09:39] LABS: ALANINE AMINOTRANSFERASE 39 U/L (12-78); ALBUMIN 3.5 G/DL (3.4-5.0); ALKALINE PHOSPHATASE 55 U/L (46-116); ANION GAP 11 mmol/L (5-15); ASPARTATE AMINO TRANSFERASE 41 U/L (15-37); BILIRUBIN,TOTAL 1.1 MG/DL (0.2-1.0); BLOOD UREA NITROGEN 13 mg/dL (7-18); CALCIUM 8.6 MG/DL (8.5-10.1); CARBON DIOXIDE 25 MMOL/L (21-32); CHLORIDE 102 MMOL/L (98-107); CREATININE 1.5 MG/DL (0.55-1.30); PHOSPHORUS 3.7 MG/DL (2.5-4.9); POTASSIUM 4.4 MMOL/L (3.5-5.1); SODIUM 138 MMOL/L (136-145)
[2017-10-02 09:45] LABS: BILIRUBIN,DIRECT 0.2 MG/DL (0.0-0.3)
[2017-10-02] MEDS ORDERED: D5 1/2NS 1000ml IV ONE ×2 (10:44→11:05)
[2017-10-02] MEDS ORDERED: Tubing IV Secondary IV ONE (10:44)
[2017-10-02 12:00] VITALS: BP 129/73
--- NOTE | 2017-10-02 13:26 | Internal Med Progress Note ---
Subjective Date of Service: October 02, 2017 Physician Name Mascorro,Skylar Attending Physician Fabricio Ritchie MD Current Medications Medications (Trade) Dose Ordered Sig/Jeremie Route PRN Reason Start Time Stop Time Status Last Admin Dose Admin Acetaminophen (Tylenol) 650 mg Q6H PRN ORAL Mild Pain/Temp > 100.5 10/01/17 19:45 10/31/17 19:44 Al Hydroxide/Mg Hydroxide (Mylanta II) 30 ml Q6H PRN ORAL dyspepsia 10/01/17 07:00 10/31/17 06:59 Cefazolin Sodium 2 gm/Dextrose 55 ml @ 110 mls/hr Q8H IV 10/02/17 04:00 10/02/17 20:29 10/02/17 04:08 Celecoxib (CeleBREX) 200 mg DAILY ORAL 10/02/17 09:00 11/01/17 08:59 10/02/17 09:10 Dextrose (Dextrose 50%) 25 ml PRN IV Hypoglycemia 10/01/17 07:15 10/31/17 07:14 Dextrose (Dextrose 50%) 50 ml PRN IV hypoglycemia 10/01/17 07:15 10/31/17 07:14 Dextrose/Sodium Chloride 1,000 ml @ 75 mls/hr [id number] IV 10/01/17 03:00 10/31/17 02:59 10/02/17 06:49 Docusate Sodium (Colace) 100 mg THREE TIMES A DAY ORAL 10/02/17 09:00 11/01/17 08:59 Heparin Sodium (Porcine) (Heparin 5000 units/ml) 5,000 units EVERY 12 HOURS SUBQ 10/01/17 09:00 10/31/17 08:59 Lorazepam (Ativan 2mg/ml 1ml) 0.5 mg Q4H PRN IV For Anxiety 10/01/17 07:00 10/08/17 06:59 Morphine Sulfate (Morphine Sulfate) 2 mg Q4H PRN IVP Mild Pain (Pain Scale 1-3) 10/01/17 02:15 10/08/17 02:14 Morphine Sulfate (Morphine Sulfate) 4 mg Q4H PRN IVP Moderate Pain (Pain Scale 4-6) 10/01/17 02:15 10/08/17 02:14 10/02/17 10:05 Morphine Sulfate (Morphine Sulfate) 6 mg Q4H PRN IVP Severe Pain (Pain Scale 7-10) 10/01/17 06:00 10/08/17 01:59 10/02/17 06:02 Ondansetron HCl (Zofran) 4 mg Q6H PRN IVP Nausea & Vomiting 10/01/17 19:45 10/31/17 19:44 Oxycodone HCl (OxyCONTIN) 20 mg EVERY 12 HOURS ORAL 10/02/17 09:00 10/09/17 08:59 10/02/17 09:10 Polyethylene Glycol (Miralax) 17 gm HSPRN PRN ORAL Constipation 10/01/17 21:00 10/31/17 20:59 Senna/Docusate Sodium (Ashlyn-Colace) 1 tab TWICE A DAY ORAL 10/02/17 09:00 11/01/17 08:59 Temazepam (Restoril) 7.5 mg HSPRN PRN ORAL Insomnia 10/01/17 19:45 10/08/17 19:44 10/02/17 00:56 Allergies: Coded Allergies: FENTANYL (Verified Allergy, Unknown, 09/30/17) ROS Limited/Unobtainable: No Constitutional: Reports: no symptoms HEENT: Reports: no symptoms Cardiovascular: Reports: no symptoms Respiratory: Reports: no symptoms Gastrointestinal/Abdominal: Reports: no symptoms Genitourinary: Reports: no symptoms Neurologic/Psychiatric: Reports: no symptoms Subjective 27 YO M admitted with right leg pain. S/P ORIF right tibia/fibula 10/01/17. Cover for Int Jeferson-Dr Ritchie Objective Last Vital Signs Date Time Temp Pulse Resp B/P (MAP) Pulse Ox O2 Delivery O2 Flow Rate FiO2 10/02/17 12:00 97.2 86 20 129/73 99 Room Air 97.2 10/02/17 00:00 3.0 General Appearance: WD/WN, no apparent distress, alert, mild distress EENT: PERRL/EOMI, normal ENT inspection, TMs normal Neck: non-tender, normal alignment, supple, normal inspection Cardiovascular: normal peripheral pulses, normal rate, regular rhythm, no gallop/murmur, no JVD Respiratory/Chest: chest wall non-tender, lungs clear, normal breath sounds, no respiratory distress, no accessory muscle use Abdomen: normal bowel sounds, non tender, soft, no organomegaly, no mass Extremities: normal range of motion, non-tender Edema: trace edema, other - cast right leg Neurologic: 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 grossly normal, no motor/sensory deficits Skin: normal pigmentation, warm/dry Laboratory Tests Test 10/02/17 07:55 White Blood Count 10.6 K/UL (4.8-10.8) Red Blood Count 4.33 M/UL (4.70-6.10) L Hemoglobin 14.5 G/DL (14.2-18.0) Hematocrit 40.0 % (42.0-52.0) L Mean Corpuscular Volume 92 FL (80-99) Mean Corpuscular Hemoglobin 33.6 PG (27.0-31.0) H Mean Corpuscular Hemoglobin Concent 36.4 G/DL (32.0-36.0) H Red Cell Distribution Width 10.8 % (11.6-14.8) L Platelet Count 197 K/UL (150-450) Mean Platelet Volume 8.4 FL (6.5-10.1) Neutrophils (%) (Auto) % (45.0-75.0) Lymphocytes (%) (Auto) % (20.0-45.0) Monocytes (%) (Auto) % (1.0-10.0) Eosinophils (%) (Auto) % (0.0-3.0) Basophils (%) (Auto) % (0.0-2.0) Differential Total Cells Counted 100 Neutrophils % (Manual) 88 % (45-75) H Lymphocytes % (Manual) 6 % (20-45) L Monocytes % (Manual) 6 % (1-10) Eosinophils % (Manual) 0 % (0-3) Basophils % (Manual) 0 % (0-2) Band Neutrophils 0 % (0-8) Platelet Estimate Adequate Platelet Morphology Normal Red Blood Cell Morphology Normal Sodium Level 138 MMOL/L (136-145) Potassium Level 4.4 MMOL/L (3.5-5.1) Chloride Level 102 MMOL/L (98-107) Carbon Dioxide Level 25 MMOL/L (21-32) Anion Gap 11 mmol/L (5-15) Blood Urea Nitrogen 13 mg/dL (7-18) Creatinine 1.5 MG/DL (0.55-1.30) H Estimat Glomerular Filtration Rate 56.1 mL/min (>60) Glucose Level 142 MG/DL (74-106) H Calcium Level 8.6 MG/DL (8.5-10.1) Phosphorus Level 3.7 MG/DL (2.5-4.9) Magnesium Level 1.7 MG/DL (1.8-2.4) L Total Bilirubin 1.1 MG/DL (0.2-1.0) H Direct Bilirubin 0.2 MG/DL (0.0-0.3) Aspartate Amino Transf (AST/SGOT) 41 U/L (15-37) H Alanine Aminotransferase (ALT/SGPT) 39 U/L (12-78) Alkaline Phosphatase 55 U/L (46-116) Total Protein 7.0 G/DL (6.4-8.2) Albumin 3.5 G/DL (3.4-5.0) Globulin 3.5 g/dL Albumin/Globulin Ratio 1.0 (1.0-2.7) Thyroid Stimulating Hormone (TSH) 0.551 uiU/mL (0.358-3.740) Intake and Output 10/01/17 10/02/17 19:00 07:00 Intake Total 75 ml 5147.5 ml Output Total 1000 ml 2900 ml Balance -925 ml 2247.5 ml Intake Oral 2000 ml IV Total 75 ml 3147.5 ml Output Urine Total 1000 ml 2700 ml Estimated Blood Loss 200 ml # Voids 2 7 Assessment/Plan Problem List: (1) Right leg pain (2) Tibia/fibula fracture Assessment & Plan: S/P ORIF right Tib/fib. Status: stable SKYLAR MASCORRO October 02, 2017 13:26
[2017-10-02] MEDS ORDERED: PERCOCET 5-3251 EACH ORAL (13:27)
[2017-10-02] MEDS ORDERED: oxyCODONE HCL/Acetaminophen 5/325mg ORAL PRN (13:30)
--- NOTE | 2017-10-04 13:00 | Consultation ---
DATE OF CONSULTATION: 10/01/2017 ORTHOPEDIC CONSULTATION CONSULTING PHYSICIAN: Ho Guajardo M.D. CHIEF COMPLAINT: Right leg pain. HISTORY OF PRESENT ILLNESS: The patient is a pleasant 27-year-old gentleman, who injured his right leg while playing basketball and was diagnosed as having tib-fib fracture. Orthopedic consultation was obtained for further care and recommendation. PAST MEDICAL HISTORY: Reviewed from the intake chart. PAST SURGICAL HISTORY: Reviewed from the intake chart. MEDICATIONS: Reviewed from the intake chart. PHYSICAL EXAMINATION: Examination shows coaptation brace in place. The patient sensation in the dorsal and plantar aspects of the foot. Dorsalis pedis pulse +2. DIAGNOSTIC DATA: Imaging study shows a distal third tib-fib fracture. Transverse process right distal third tib-fib fracture. DISCUSSION: At this point, I will perform open reduction internal fixation intramedullary nail. Risks, limitations, expectations, and complications of procedure were discussed in detail and questions were addressed including malunion and nonunion, need for future surgery, risk of anesthesia, medical complications, DVT, PE, and mortality risks. All questions were addressed. She will be NPO. Anticipation of patient's surgery is on today. Ho Guajardo M.D. DR: [place] JOB#: [id number] CC:
--- NOTE | 2017-10-05 09:50 | Discharge Summary ---
Discharge Summary Discharge Summary Discharge Summary DATE OF ADMISSION: 09/30/2017 DATE OF DISCHARGE: 10/02/2017 REASON FOR ADMISSION: 27 years old male without significant past medical history sustained injury while playing basketball. Patient reported sharp pain in the right lower extremity, throbbing, nonradiating, 10 out of 10 in intensity. Patient subsequently was brought to emergency room for evaluation. Upon initial evaluation patient was found to have right tibia/fibula fracture. X-ray of the right lower extremity revealed acute distal tibial and fibula fracture; x- ray of the right ankle revealed acute fractures of the distal fibular and tibial shafts. Ankle mortise intact. No definite/displaced ankle fracture was identified Laboratory workup revealed acute kidney injury BUN 20 and creatinine 1.9, mild leukocytosis 11.2, vital signs were stable. Patient was admitted with diagnosis of status post injury to right lower extremity, acute tibia/fibula right lower extremity fracture, acute kidney injury, dehydration. Patient was admitted for surgical intervention. CONSULTANTS: orthopedic surgery Dr. Guajardo pain specialist Dr. Rucker HOSPITAL COURSE: Patient was admitted. Patient started on the IV hydration. Orthopedic surgery consult was requested. Orthopedic surgeon seen patient and explained the need for surgical intervention, discussing in detail, procedure, risks and benefits. Consent was obtained. Patient was kept nothing by mouth after midnight prior to surgery. Prophylactic antibiotic provided. Surgery and postoperative recovery was uneventful. Patient was working with physical therapist , was able to ambulate with crutches, non weight bearing status of right lower extremity. Pain management was provided as per pain specialist recommendations. Dressing was clean, dry and intact, posterior splint on. Patient was neurovascularly intact. Physical therapist deemed patient safe for discharge home with crutches. Patient was instructed to keep dressing clean and dry and no change until seen by surgeon in 10-14 days. Leukocytosis resolved, likely reactive secondary to acute fracture. Renal parameters improved with hydration: BUN from 20 down to 14 and creatinine from 1.9 down to 1.5 .Renal parameters and electrolytes were closely monitored. Nephrotoxins were avoided. Bowel regimen instituted. Patient was stable for discharge. Prescription for analgesic provided. Patient to follow-up with surgeon as outpatient i 10-14 days. FINAL DIAGNOSES: Acute distal right tibia and fibula fracture secondary to injury Status post open reduction internal fixation right tibia /fibula fracture on 08/2017 Acute kidney injury, improved Dehydration, resolved DISCHARGE MEDICATIONS: See Medication Reconciliation list. DISCHARGE INSTRUCTIONS: patient was discharged home with crutches and non-weight bearing status. Patient to follow-up with orthopedic surgeon in 10-14 days, keep dressing clean and dry , do not change dressing until seen by surgeon. I have been assigned to dictate discharge summary for this account. I was not involved in the patient's management. Kayy Keith NP ([place]) October 05, 2017 09:50
--- NOTE | 2017-10-06 00:45 | Consultation ---
DATE OF CONSULTATION: 09/30/2017 CHIEF COMPLAINT: Right leg pain. HISTORY OF PRESENT ILLNESS: The patient is a pleasant 27-year-old gentleman who was playing basketball when he got injured into a wall. He has deformity of the right leg. He was brought to [facility] where he had significant fracture of the distal third tib-fib. Orthopedic consultation was obtained for further care and recommendation. PAST MEDICAL HISTORY: Reviewed from the intake chart. PAST SURGICAL HISTORY: Reviewed from the intake chart. MEDICATIONS: Reviewed from the intake chart. PHYSICAL EXAMINATION: The patient is alert and oriented. He has moderate discomfort and pain in the right leg. He is able to flex and extend his toes. Neurovascular is normal. DIAGNOSTIC DATA: Imaging studies showed comminuted distal third tib-fib fracture. ASSESSMENT: Right distal tib-fib fracture. DISCUSSION: At this point, I recommend operative intervention with open reduction and internal fixation. We will proceed with open form of open reduction and internal fixation of distal third aspect of the fracture. Once the reduction is held with the plate and screw fixation, intramedullary nail will be placed. Risks, limitations, expectations, and complications of procedure were discussed in detail. We will proceed with surgery tomorrow if he is medically cleared and optimized for surgery. Ho Guajardo M.D. DR: AKOSUA JOB#: [id number] CC:
== END 2017-10-02 14:05 | disposition home or self-care (01) | DRG 493 ==
LOC: EDBD 18:49 → EMR 20:55 → 4E 20:59 → EDBEDREQ 22:03 → 4E 23:56
PROC: 0QSLXZZ Reposition Right Tarsal, External Approach (ICD-10-PCS; principal; 2017-09-30)
PROC: 0QSJXZZ Reposition Right Fibula, External Approach (ICD-10-PCS; principal; 2017-09-30)
PROC: 0QSG06Z Reposition Right Tibia with Intramedullary Internal Fixation Device, Open Approach (ICD-10-PCS; 2017-10-01)
DX: S82.301A Unspecified fracture of lower end of right tibia, initial encounter for closed fracture (principal); N17.9 Acute kidney failure, unspecified; E86.0 Dehydration; S82.401A Unspecified fracture of shaft of right fibula, initial encounter for closed fracture; Y93.67 Activity, basketball; Y92.39 Other specified sports and athletic area as the place of occurrence of the external cause
CPT/HCPCS: 36415; 76001; 80053; 82248; 83735; 84100; 84443; 85007; 85025; 85610; 85730; 86850; 86900; 86901; 99285; C9399; J2405; J2710; J2765